=== PATIENT | male | born 1985 | race African-American/Black ===

== ENCOUNTER 2017-04-15 22:04 | Emergency (ER) | payer SELFPAY ==
--- NOTE | 2017-04-15 23:49 | NUR ---
INFORMED BY ADMITTING "PT LEFT"
== END 2017-04-15 23:52 | disposition left against medical advice (07) ==
LOC: ER 22:06
DX: Z53.21 Procedure and treatment not carried out due to patient leaving prior to being seen by health care provider (principal)